=== PATIENT | female | born 1955 | race Caucasian/White ===

== ENCOUNTER 2019-04-06 10:12 | Emergency (ER) | payer OTHER ==
[~2019-04-06] VITALS: Ht 172.7 cm; Wt 99.5 kg
--- NOTE | 2019-04-06 10:20 | NUR ---
PT TO ER BED 2
[2019-04-06 10:25] VITALS: BP 170/87
--- NOTE | 2019-04-06 10:30 | NUR ---
63F C/O BURNING DISCOMFORT UNDER RIGHT BREAST RADIATING TO THE RIGHT BACK X 3 WEEKS. STATES IT IS A DISCOMFORT RATHER THAN PAIN. DOES NOT CROSS THE MIDLINE. NO RASHES NOTED, AND PATIENT DENIES RASHES IN THE LAST 3 WEEKS. PT THINK IT MAY BE DUE TO LIFTING/EXERCISE OR HER BRA. CHANGED TO SPORTS BRA BUT NO RELIEF. TOOK IBUPROFEN TO NO RELIEF. DISCOMFORT IS CONSTANT. RELIEVED BY SITTING UP STRAIGHT. AGGRAVATED BY MOVEMENT. DENIES N/V/D/FEVER. ALSO C/O "BUG BITES" THROUGHOUT BODY, WANTS TO CHECK IT AND RX MEDICATION. NAD.
[2019-04-06] MEDS ORDERED: LOSA100T51 PO (10:43)
--- NOTE | 2019-04-06 11:00 | NUR ---
AT BEDSIDE WITH DR. MYLES FOR BREAST EXAM.
[2019-04-06] MEDS ORDERED: KETOROLAC 30 MG/ML VIAL IM ONE (11:05)
--- NOTE | 2019-04-06 11:25 | NUR ---
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
[2019-04-06 11:49] LABS: ANION GAP 12.3 (8-16); CARBON DIOXIDE 26.5 mmol/L (21-32); CREATININE 0.8 mg/dL (0.6-1.3); POTASSIUM 3.8 mmol/L (3.5-5.1)
[2019-04-06 11:55] LABS: ALBUMIN 3.6 g/dL (3.4-5.0); TOTAL BILIRUBIN 1.3 mg/dL (0.0-1.0)
[2019-04-06 12:36] VITALS: BP 141/68
== END 2019-04-06 12:35 | disposition home or self-care (01) ==
LOC: MED 10:12
DX: R07.89 Other chest pain (principal); R10.9 Unspecified abdominal pain; Z90.49 Acquired absence of other specified parts of digestive tract; Z79.899 Other long term (current) drug therapy
CPT/HCPCS: 36415; 71045; 80053; 83690; 96372; 99284; J1885; Q0092

== ENCOUNTER 2019-10-08 15:18 | Emergency (ER) | payer OTHER ==
[~2019-10-08] VITALS: Ht 170.2 cm; Wt 101.6 kg
[~2019-10-08 15:18] MED LIST: LOSA100T51 PO
[2019-10-08 15:23] VITALS: BP 140/74
[2019-10-08 16:00] VITALS: BP 140/74
--- NOTE | 2019-10-08 16:08 | NUR ---
Patient discharged with v/s stable. Written and verbal after care instructions given and explained. Patient alert, oriented and verbalized understanding of instructions. Ambulatory with steady gait. All questions addressed prior to discharge. ID band removed. Patient advised to follow up with PMD. Rx of NAPROXEN, FLONASE, CLARITIN given. Patient educated on indication of medication including possible reaction and side effects. Opportunity to ask questions provided and answered.
== END 2019-10-08 15:57 | disposition home or self-care (01) ==
LOC: MED 15:18
DX: J32.9 Chronic sinusitis, unspecified (principal); Z79.899 Other long term (current) drug therapy; Z98.890 Other specified postprocedural states
CPT/HCPCS: 99283

== ENCOUNTER 2023-01-09 16:54 | Emergency (ER) | payer OTHER ==
[~2023-01-09] VITALS: Ht 170.2 cm; Wt 90.7 kg
[~2023-01-09 16:54] MED LIST changes: -LOSA100T51 PO; +LOSA100T52 PO
[2023-01-09 17:09] VITALS: BP 162/74
[2023-01-09] MEDS ORDERED: DICYCLOMINE 20 MG/2 ML VIAL IM ONE (18:30)
[2023-01-09] MEDS ORDERED: ONDANSETRON 4 MG ODT PO ONE (18:30)
[2023-01-09] MEDS ORDERED: BEN10 PO (18:33)
[2023-01-09] MEDS ORDERED: ONDA-188 SL (18:33)
--- NOTE | 2023-01-09 18:40 | NUR ---
67YO F C/O NAUSEA, VOMITING TODAY STARTING AT 2PM AFTER EATING MURPHY'S. UNABLE TO HOLD FLUIDS. ONE EPISODE OF DIARRHEA. DENIES DIZZINESS, URINARY SYMPTOMS, FLU SYMPTOMS. SAFETY MAINTAINED. HX: HTN NKA
[2023-01-09 19:09] VITALS: BP 158/71
--- NOTE | 2023-01-09 19:09 | NUR ---
Patient discharged with v/s stable. Written and verbal after care instructions given and explained. Patient alert, oriented and verbalized understanding of instructions. Ambulatory with steady gait. All questions addressed prior to discharge. ID band removed. Patient advised to follow up with PMD. Rx of TORI ALMANZAR given. Patient educated on indication of medication including possible reaction and side effects. Opportunity to ask questions provided and answered.
--- NOTE | 2023-01-09 19:16 | NUR ---
The patient's care was reviewed and supervised by [facility], RN.
== END 2023-01-09 19:16 | disposition home or self-care (01) ==
LOC: MED 16:54
DX: A05.9 Bacterial foodborne intoxication, unspecified (principal); R11.2 Nausea with vomiting, unspecified; R19.7 Diarrhea, unspecified; I10 Essential (primary) hypertension; Z79.899 Other long term (current) drug therapy
CPT/HCPCS: 96372; 99283; J0500; Q0162